=== PATIENT | female | born 1985 | race Caucasian/White ===

== ENCOUNTER 2023-09-25 10:47 | Inpatient (IN) ==
[2023-09-25 12:01] LABS: Urine Appearance Turbid; Urine Bilirubin Negative (Negative); Urine Blood Trace (Negative); Urine Color Light-Yellow; Urine Glucose Negative (Negative); Urine Ketones Negative (Negative); Urine Nitrite Negative (Negative); Urine Protein Negative (Negative); Urine Specific Gravity 1.018 (1.002-1.030); Urine Urobilinogen Negative (Negative); Urine pH 6.5 (5.0-8.0)
[2023-09-25 12:04] LABS: Urine Bacteria Absent /HPF (Absent); Urine Red Blood Cell Trace(0-2/hpf) /HPF (0-Trace); Urine Squamous Epithelial Cell Present /HPF (Absent); Urine White Blood Cell 2+(11-20/hpf) /HPF (0-Trace)
[2023-09-25 12:23] LABS: ABS Eosinophils 0.1 10^3/uL (0.0-0.5); ABS Lymphocytes 1.3 10^3/uL (1.0-4.8); ABS Monocytes 0.3 10^3/uL (0.0-0.9); ABS Neutrophils 3.6 10^3/uL (1.5-7.6); Eosinophil % 1.3 %; Hemoglobin 13.9 g/dL (11.5-14.3); Lymphocyte % 24.8 %; Mean Corpuscular Hemoglobin 31.6 pg (27-33); Mean Platelet Volume 9.1 fL (7.5-11.2); Platelet Count 211 10^3/uL (150-450); Red Cell Distribution Width 12.8 % (12-17); White Blood Count 5.2 10^3/uL (3.8-11.8)
[2023-09-25 12:23] LABS: Urine Benzodiazepine Screen None Detected (None Detect); Urine Cannabinoids Screen None Detected (None Detect); Urine Opiates Screen None Detected (None Detect)
[2023-09-25 13:04] LABS: HCG Pregnancy < 0.60 mIU/mL
[2023-09-25 13:05] LABS: ALT 17 U/L (7-52); AST 18 U/L (13-39); Acetaminophen < 15 mcg/mL; Alcohol, S < 13 mg/dL (<13); Alkaline Phosphatase 49 U/L (35-149); Anion Gap 8 mmol/L (2-16); Blood Urea Nitrogen 14 mg/dL (6-24); CO2 Carbon Dioxide 25 mmol/L (22-32); Chloride 105 mmol/L (101-111); Creatinine, Serum 0.72 mg/dL (0.51-0.95); Globulin 2.5 g/dL (2-4); Glucose 114 mg/dL (70-100); Potassium 4.1 mmol/L (3.5-5.0); Salicylate < 2.50 mg/dL (<30); Sodium 138 mmol/L (135-145); Total Bilirubin 0.4 mg/dL (0.2-1.0); Total Protein 7.5 g/dL (6.4-8.9); eGFR CKD-EPI 111.8 (>60)
[2023-09-25 13:13] LABS: TSH Ultra Thyroid Stim Horm 0.96 mcIU/mL (0.34-5.60)
[2023-09-25 22:54] VITALS: BP 00/00
[2023-09-27] MEDS: Al Hydrox/Mg Hydrox/Simet LIQ 30 ML UDC PO PRN (14:36)
[2023-10-01 14:17] LABS: HDL Cholesterol 77.9 mg/dL
== END 2023-10-01 14:30 | disposition home or self-care (01) | DRG 753 ==
LOC: ED 10:47 → EDHOLD 14:20 → BSU 15:53
PROVIDERS: ADMIT Psychiatry & Neurology Psychiatry; ATTEND Psychiatry & Neurology Psychiatry

== ENCOUNTER 2023-11-01 09:29 | Inpatient (IN) ==
[2023-11-01 12:15] LABS: Urine Benzodiazepine Screen None Detected (None Detect); Urine Cannabinoids Screen None Detected (None Detect); Urine Opiates Screen None Detected (None Detect)
[2023-11-01 12:42] LABS: ABS Basophils 0.1 10^3/uL (0.0-0.1); ABS Lymphocytes 1.8 10^3/uL (1.0-4.8); ABS Monocytes 0.3 10^3/uL (0.0-0.9); ABS Neutrophils 5.1 10^3/uL (1.5-7.6); Eosinophil % 0.5 %; Hematocrit 43.8 % (35-45); Hemoglobin 14.5 g/dL (11.5-14.3); Mean Corpuscular Hgb Conc 33.2 g/dL (31-36); Mean Corpuscular Volume 93.2 fL (80-97); Mean Platelet Volume 8.8 fL (7.5-11.2); Platelet Count 259 10^3/uL (150-450); Red Cell Distribution Width 12.7 % (12-17); White Blood Count 7.3 10^3/uL (3.8-11.8)
[2023-11-01] MEDS ORDERED: Sterile Water for Inj 10 ML ONE (12:47)
[2023-11-01 13:24] LABS: HCG Pregnancy < 0.60 mIU/mL
[2023-11-01 13:27] LABS: ALT 18 U/L (7-52); AST 19 U/L (13-39); Acetaminophen < 15 mcg/mL; Albumin 5.1 g/dL (3.2-5.2); Albumin/Globulin Ratio 1.5 (1-3); Alcohol, S < 13 mg/dL (<13); Alkaline Phosphatase 55 U/L (35-149); Anion Gap 13 mmol/L (2-16); Blood Urea Nitrogen 10 mg/dL (6-24); CO2 Carbon Dioxide 25 mmol/L (22-32); Calcium 10.3 mg/dL (8.6-10.3); Chloride 101 mmol/L (101-111); Creatinine, Serum 0.82 mg/dL (0.51-0.95); Globulin 3.3 g/dL (2-4); Glucose 160 mg/dL (70-100); Potassium 3.5 mmol/L (3.5-5.0); Salicylate < 2.50 mg/dL (<30); Sodium 139 mmol/L (135-145); Total Bilirubin 0.5 mg/dL (0.2-1.0); Total Protein 8.4 g/dL (6.4-8.9)
[2023-11-01 13:32] LABS: TSH Ultra Thyroid Stim Horm 0.64 mcIU/mL (0.34-5.60)
[2023-11-01] MEDS ORDERED: Nicotine GUM 2MG FRUIT FLAVOR PO PRN (15:00)
[2023-11-01] MEDS: OLANZapine IM (NF) 10 MG VIAL IM ONE ×3 (17:23→22:54)
[2023-11-02] MEDS: Vitamin THERAPEUTIC TAB PO SCH (08:47)
[2023-11-02] MEDS: Nicotine PATCH 21 MG/24 HR PATCH TRANSDERM SCH (08:47)
[2023-11-02] MEDS: Al Hydrox/Mg Hydrox/Simet LIQ 30 ML UDC PO PRN (13:54)
[2023-11-05] MEDS: Polyethylene Glycol 3350 17 GM PACKET PO PRN (23:30)
[2023-11-07] MEDS: OLANZapine 5 mg TAB *ODT PO SCH (20:26)
[2023-11-08] MEDS: LORazepam 2 MG/ML 1 mL Syringe ONE (12:40)
[2023-11-08] MEDS: Haloperidol 5 mg/ml SDV IV/IM 5 MG/ML AMP ONE (12:40)
[2023-11-08] MEDS: Haloperidol 5 mg/ml SDV IV/IM 5 MG/ML AMP IM ONE (22:57)
[2023-11-08] MEDS: LORazepam 2 MG/ML 1 mL Syringe IM ONE (22:57)
[2023-11-11] MEDS: Paliperidone SUSTENNA 234 MG/1.5 ML IM ONE (10:21)
[2023-11-14] MEDS: Paliperidone SUSTENNA 156 MG/1 ML IM ONE (14:19)
[2023-11-16 11:47] VITALS: BP 126/82
== END 2023-11-17 12:24 | disposition home or self-care (01) | DRG 753 ==
LOC: ED 09:29 → EDHOLD 14:56 → BSU 15:00
PROVIDERS: ADMIT Psychiatry & Neurology Psychiatry; ATTEND Psychiatry & Neurology Psychiatry

== ENCOUNTER 2023-12-21 17:00 | Inpatient (IN) ==
[2023-12-21] MEDS ORDERED: Nicotine Lozenge mini 2 MG LOZNG.MINI MT PRN (19:00)
[2023-12-22] MEDS: Vitamin THERAPEUTIC TAB PO SCH (17:01)
[2023-12-25] MEDS: Al Hydrox/Mg Hydrox/Simet LIQ 30 ML UDC PO PRN (15:30)
[2023-12-29 08:56] VITALS: BP 103/73
== END 2023-12-29 13:19 | disposition home or self-care (01) | DRG 753 ==
LOC: BSU 17:59
PROVIDERS: ADMIT Psychiatry & Neurology Psychiatry; ATTEND Psychiatry & Neurology Psychiatry

== ENCOUNTER 2024-01-10 13:01 | Inpatient (IN) ==
[2024-01-10 14:18] LABS: ABS Basophils 0.1 10^3/uL (0.0-0.1); ABS Eosinophils 0.1 10^3/uL (0.0-0.5); ABS Lymphocytes 1.7 10^3/uL (1.0-4.8); ABS Monocytes 0.4 10^3/uL (0.0-0.9); ABS Neutrophils 5.3 10^3/uL (1.5-7.6); ABS Nucleated RBC 0.01 10^3/ul; Eosinophil % 1.4 %; Hematocrit 42.2 % (35-45); Hemoglobin 14.1 g/dL (11.5-14.3); Lymphocyte % 22.8 %; Mean Corpuscular Hemoglobin 30.6 pg (27-33); Mean Corpuscular Hgb Conc 33.4 g/dL (31-36); Mean Corpuscular Volume 91.6 fL (80-97); Mean Platelet Volume 8.5 fL (7.5-11.2); Nucleated Red Blood Cells % 0.1 %/100WBC (0.0-0.8); Platelet Count 238 10^3/uL (150-450); Red Blood Count 4.61 10^6/uL (3.63-4.92); Red Cell Distribution Width 13.1 % (12-17); White Blood Count 7.6 10^3/uL (3.8-11.8)
[2024-01-10 14:30] LABS: Urine Benzodiazepine Screen None Detected (None Detect); Urine Cannabinoids Screen None Detected (None Detect); Urine Opiates Screen None Detected (None Detect)
[2024-01-10 15:37] LABS: HCG Pregnancy < 0.60 mIU/mL
[2024-01-10 16:21] LABS: ALT 19 U/L (7-52); AST 18 U/L (13-39); Albumin 4.9 g/dL (3.2-5.2); Albumin/Globulin Ratio 1.6 (1-3); Alkaline Phosphatase 65 U/L (35-149); Anion Gap 8 mmol/L (2-16); Blood Urea Nitrogen 15 mg/dL (6-24); CO2 Carbon Dioxide 28 mmol/L (22-32); Calcium 10.2 mg/dL (8.6-10.3); Chloride 102 mmol/L (101-111); Creatinine, Serum 0.77 mg/dL (0.51-0.95); Globulin 3.1 g/dL (2-4); Glucose 88 mg/dL (70-100); Potassium 4.3 mmol/L (3.5-5.0); Sodium 138 mmol/L (135-145); Total Bilirubin 0.3 mg/dL (0.2-1.0); eGFR CKD-EPI 102.5 (>60)
[2024-01-10] MEDS ORDERED: Al Hydrox/Mg Hydrox/Simet LIQ 30 ML UDC PO PRN (18:08)
[2024-01-11] MEDS: Vitamin THERAPEUTIC TAB PO SCH (09:23)
[2024-01-15 09:53] VITALS: BP 119/77
== END 2024-01-16 12:20 | disposition home or self-care (01) | DRG 753 ==
LOC: ED 13:01 → EDHOLD 16:49 → BSU 17:54
PROVIDERS: ADMIT Psychiatry & Neurology Addiction Psychiatry; ATTEND Psychiatry & Neurology Psychiatry

== ENCOUNTER 2024-05-14 17:29 | Inpatient (IN) ==
[2024-05-14 18:38] LABS: Urine Appearance Clear; Urine Bilirubin Negative (Negative); Urine Blood 1+ (Negative); Urine Color Yellow; Urine Glucose Negative (Negative); Urine Ketones Trace (Negative); Urine Nitrite Negative (Negative); Urine Protein Negative (Negative); Urine Specific Gravity 1.022 (1.002-1.030); Urine Urobilinogen Negative (Negative); Urine pH 5.5 (5.0-8.0)
[2024-05-14 18:40] LABS: Urine Bacteria 1+ /HPF (Absent); Urine Red Blood Cell 3+(>10/hpf) /HPF (0-Trace); Urine Squamous Epithelial Cell Present /HPF (Absent); Urine White Blood Cell Trace(0-5/hpf) /HPF (0-Trace)
[2024-05-14 18:45] LABS: Urine Benzodiazepine Screen None Detected (None Detect); Urine Cannabinoids Screen None Detected (None Detect); Urine Opiates Screen None Detected (None Detect)
[2024-05-14 18:47] LABS: ABS Basophils 0.1 10^3/uL (0.0-0.1); ABS Eosinophils 0.2 10^3/uL (0.0-0.5); ABS Lymphocytes 2.6 10^3/uL (1.0-4.8); ABS Monocytes 0.6 10^3/uL (0.0-0.9); ABS Neutrophils 4.3 10^3/uL (1.5-7.6); Eosinophil % 2.1 %; Hematocrit 41.5 % (35-45); Hemoglobin 14.1 g/dL (11.5-14.3); Lymphocyte % 33.4 %; Mean Corpuscular Hemoglobin 31.2 pg (27-33); Mean Platelet Volume 8.6 fL (7.5-11.2); Platelet Count 227 10^3/uL (150-450); Red Blood Count 4.51 10^6/uL (3.63-4.92); Red Cell Distribution Width 13.5 % (12-17); White Blood Count 7.7 10^3/uL (3.8-11.8)
[2024-05-14 19:11] LABS: ALT 12 U/L (7-52); AST 13 U/L (13-39); Acetaminophen < 15 mcg/mL; Albumin 4.7 g/dL (3.5-5.7); Albumin/Globulin Ratio 1.7 (1-3); Alcohol, S < 13 mg/dL (<13); Alkaline Phosphatase 65 U/L (35-149); Anion Gap 6 mmol/L (2-16); Blood Urea Nitrogen 10 mg/dL (6-24); CO2 Carbon Dioxide 27 mmol/L (22-32); Calcium 9.3 mg/dL (8.6-10.3); Chloride 106 mmol/L (101-111); Creatinine, Serum 0.81 mg/dL (0.51-0.95); Globulin 2.7 g/dL (2-4); Glucose 91 mg/dL (70-100); Potassium 3.8 mmol/L (3.5-5.0); Salicylate < 2.50 mg/dL (<30); Sodium 139 mmol/L (135-145); Total Bilirubin 0.4 mg/dL (0.2-1.0); Total Protein 7.4 g/dL (6.4-8.9); eGFR CKD-EPI 96.4 (>60)
[2024-05-14 19:14] LABS: HCG Pregnancy < 0.60 mIU/mL
[2024-05-14 19:23] LABS: TSH Ultra Thyroid Stim Horm 1.55 mcIU/mL (0.34-5.60)
[2024-05-15] MEDS ORDERED: Al Hydrox/Mg Hydrox/Simet LIQ 30 ML UDC PO PRN (00:05)
[2024-05-15] MEDS: Vitamin THERAPEUTIC TAB PO SCH (14:24)
[2024-05-25 10:06] VITALS: BP 112/77
== END 2024-05-25 12:20 | disposition home or self-care (01) | DRG 753 ==
LOC: ED 17:29 → EDHOLD 23:17 → BSU 05-15 01:52
PROVIDERS: ADMIT Psychiatry & Neurology Psychiatry; ATTEND Psychiatry & Neurology Psychiatry